=== PATIENT | male | born 1955 | race Caucasian/White ===

== ENCOUNTER → 2022-10-29 13:59 | Outpatient (CLI) | payer MEDICARE, OTHER, SELFPAY ==
--- NOTE | 2022-10-29 14:06 | DI.RAD.S_ITS ---
PROCEDURE: XR KNEE RT 3V INDICATIONS: chronic knee pain TECHNIQUE: 3 views of the knee were acquired. COMPARISON: None. FINDINGS: Bones: No fractures or dislocations. Minor tricompartment degenerative spur formation. No suspicious bony lesions. Soft tissues: No joint effusion. No suspicious soft tissue calcifications. No chondrocalcinosis. IMPRESSION: 1. Minimal tricompartment osteoarthritic changes. Dictated by: Roz Mendoza M.D. on 10/29/2022 at 17:43 Approved by: Roz Mendoza M.D. on 10/29/2022 at 17:44
== END ==
PROVIDERS: PCP Family Medicine; Referring Provider Family Medicine; Visit Provider Family Medicine
DX: M25.561 Pain in right knee (principal)
CPT/HCPCS: 73562

== ENCOUNTER → 2022-12-17 06:51 | Outpatient (CLI) | payer MEDICARE, OTHER, SELFPAY ==
[2022-12-17 08:08] LABS: Alanine Aminotransferase 30 IU/L (<50); Albumin 4.2 g/dL (3.5-5.0); Albumin Globulin Ratio 1.6 (1.0-2.8); Alkaline Phosphatase 82 U/L (38-126); Aspartate Aminotransferase 26 IU/L (17-59); BUN Creatinine Ratio 25.4 (6-22); Bilirubin Total 0.3 mg/dL (0.2-1.3); Blood Urea Nitrogen 17 mg/dL (9-20); Calcium 9.1 mg/dL (8.4-10.2); Carbon Dioxide 27 mmol/L (22-32); Chloride 101 mmol/L (98-107); Cholesterol 118 mg/dL (140-199); Estimated Glomerular Filt Rate > 60 mL/min (>60); Globulin 2.7 g/dL (1.7-4.1); Glucose 156 mg/dL (80-110); HDL Cholesterol 32 mg/dL (40-60); HEMOLYSIS < 15 (0-50); LDL Cholesterol Calculated 65 mg/dL (<100); Potassium 4.1 mmol/L (3.4-5.1); Sodium 137 mmol/L (137-145); Total Protein 6.9 g/dL (6.3-8.2); Triglycerides 107 mg/dL (35-150)
[2022-12-18 02:57] LABS: x Labcorp Estim. Avg Glu (eAG) 151 mg/dL (.); x Labcorp Hemoglobin A1c 6.9 % (4.8-5.6)
== END ==
PROVIDERS: PCP Family Medicine; Referring Provider Family Medicine; Visit Provider Family Medicine
DX: E11.9 Type 2 diabetes mellitus without complications (principal); I10 Essential (primary) hypertension
CPT/HCPCS: 36415; 80053; 80061; 83036

== ENCOUNTER → 2022-12-31 14:46 | Outpatient (CLI) | payer MEDICARE, OTHER, SELFPAY ==
--- NOTE | 2022-12-31 14:48 | DI.RAD.S_ITS ---
PROCEDURE: XR HIP W PEL IF DONE LT 2V INDICATIONS: pain x 2 wks TECHNIQUE: AP pelvis with lateral view(s) of the left hip(s). COMPARISON: None. FINDINGS: Bones: No fractures or dislocations. Pelvic ring appears intact. No suspicious bony lesions. Lower lumbar spine postsurgical changes partially imaged. Severe left hip joint space narrowing. Spurring is also present and probable subchondral cystic change. Soft tissues: The visualized bowel gas pattern is normal. No suspicious soft tissue calcifications. IMPRESSION: No acute fracture or dislocation identified. Pronounced degenerative changes of the left hip present. If symptoms persist, follow-up radiographs and/or CT or MRI may be helpful for further evaluation. Dictated by: Itz Henry M.D. on 12/31/2022 at 18:24 Approved by: Itz Henry M.D. on 12/31/2022 at 18:25
== END ==
PROVIDERS: PCP Family Medicine; Referring Provider Family Medicine; Visit Provider Family Medicine
DX: M25.552 Pain in left hip (principal)
CPT/HCPCS: 73502

== ENCOUNTER → 2023-01-09 09:58 | Outpatient (CLI) | payer MEDICARE, OTHER, SELFPAY ==
--- NOTE | 2023-01-09 | DI.RAD.S_ITS ---
PROCEDURE: XR CERVICAL SPINE 2V OR 3V INDICATIONS: Presence of other specified functional implants TECHNIQUE: 2 view(s) of the cervical spine were acquired. COMPARISON: None. FINDINGS: Bones: No fractures or dislocations to the C7 level. The lateral masses of C1 appear intact on the odontoid view. No suspicious bony lesions. Straightening of normal cervical lordosis with mild reversal centered at C5-C6. Multilevel degenerative changes with facet and uncovertebral arthropathy, disc height loss and osteophytosis. This is severe at C5-C6. Soft tissues: No prevertebral soft tissue swelling. Spinal cord stimulator lead extending to the level of the occiput. IMPRESSION: Multilevel degenerative changes, severe at C5-C6. Spinal cord stimulator leads extend to the level of the occiput. Dictated by: Darren Grant M.D. on 01/09/2023 at 13:39 Approved by: Darren Grant M.D. on 01/09/2023 at 13:40
--- NOTE | 2023-01-09 | DI.RAD.S_ITS ---
PROCEDURE: XR THORACIC SPINE 2V INDICATIONS: Presence of other specified functional implants TECHNIQUE: 2 views of the thoracic spine were acquired. COMPARISON: None. FINDINGS: Bones: No fractures or dislocations. No suspicious bony lesions. 12 pairs of ribs are noted, and appear intact where visualized. Degenerative changes of the thoracic spine with disc height loss and degenerative endplate changes with spurring. Diffusely decreased osseous mineralization. Soft tissues: No paravertebral stripe thickening. Spinal cord stimulator is partially visualized with leads extending into the thoracic spine, 1 lead terminates at T8-T9, the other lead extends into the cervical spine. IMPRESSION: Multilevel degenerative changes of the thoracic spine. Spinal cord stimulator in place with leads as described above. Dictated by: Darren Grant M.D. on 01/09/2023 at 13:37 Approved by: Darren Grant M.D. on 01/09/2023 at 13:39
--- NOTE | 2023-01-09 | DI.RAD.S_ITS ---
PROCEDURE: XR LUMBAR SPINE 2-3V INDICATIONS: Presence of other specified functional implants TECHNIQUE: 2 views of the lumbar spine were acquired. COMPARISON: None. FINDINGS: Bones: 5 [id number] vertebrae are present. Straightening of normal lumbar lordosis. Retrolisthesis of L2 on L3. Posterior spinal fixation hardware from L3 through L5 on the right and L3-L4 on the left. Discectomy hardware at L4-5 L5-S1. Fusion of the vertebral bodies from L3 through S1. Severe disc height loss L2-L3. Degenerative endplate changes with spurring. Facet arthropathy. No vertebral body compression fractures. No suspicious bony lesions. Soft tissues: Overlying bowel gas pattern is normal. No suspicious soft tissue calcifications. Spinal cord stimulator device in place. IMPRESSION: Multilevel degenerative changes of the lumbar spine status post L3 through S1 discectomy infusion, as above. The hardware appears intact. Degenerative changes at L2-L3 with severe disc height loss and grade 1 retrolisthesis. Dictated by: Darren Grant M.D. on 01/09/2023 at 13:35 Approved by: Darren Grant M.D. on 01/09/2023 at 13:37
== END ==
PROVIDERS: PCP Family Medicine; Referring Provider Pain Medicine Pain Medicine; Visit Provider Pain Medicine Pain Medicine
DX: M47.812 Spondylosis without myelopathy or radiculopathy, cervical region (principal); M47.814 Spondylosis without myelopathy or radiculopathy, thoracic region; M47.816 Spondylosis without myelopathy or radiculopathy, lumbar region; Z96.82 Presence of neurostimulator; Z98.1 Arthrodesis status
CPT/HCPCS: 72040; 72070; 72100

== ENCOUNTER 2023-01-22 21:16 | Emergency (ER) | payer MEDICARE, OTHER, SELFPAY ==
[2023-01-22 21:20] VITALS: BP 134/66; PULSE 89; RESP 18; TEMP 37.1; O2SAT 98; BMI 29.9
--- NOTE | 2023-01-22 21:30 | DI.RAD.S_ITS ---
PROCEDURE: XR KNEE LT 3V INDICATIONS: pain x 3 weeks, no trauma TECHNIQUE: 3 views of the knee were acquired. COMPARISON: [facility], CR, XR KNEE RT 3V, 10/29/2022, 14:32. FINDINGS: Bones: No fractures or dislocations. No suspicious bony lesions. Soft tissues: No joint effusion. No suspicious soft tissue calcifications. IMPRESSION: 1. No fracture or dislocation. Dictated by: Adonis Alexander M.D. on 01/22/2023 at 23:07 Approved by: Adonis Alexander M.D. on 01/22/2023 at 23:07
--- NOTE | 2023-01-22 21:30 | DI.RAD.S_ITS ---
PROCEDURE: XR HIP W PEL IF DONE LT 2V INDICATIONS: pain x 3 weeks, no trauma TECHNIQUE: AP pelvis with lateral view of the left hip. COMPARISON: [facility], CR, XR HIP W PEL IF DONE LT 2V, 12/31/2022, 15:10. FINDINGS: Bones: No fractures or dislocations. Pelvic ring appears intact. There is bony prominence of the femoral head-neck junction bilaterally. Moderate to severe superior joint space narrowing demonstrated within the left hip with subchondral sclerosis. No suspicious bony lesions. Soft tissues: The visualized bowel gas pattern is normal. No suspicious soft tissue calcifications. IMPRESSION: 1. No fracture or dislocation. 2. Bony prominence of the femoral head-neck junction bilaterally, left greater than right, may be associated with femoral acetabular impingement in the appropriate clinical context. 3. Moderate to severe superior joint space narrowing in the left hip. Dictated by: Adonis Alexander M.D. on 01/22/2023 at 23:05 Approved by: Adonis Alexander M.D. on 01/22/2023 at 23:06
--- NOTE | 2023-01-23 02:07 | ED_ITS ---
HPI - Extremity Problem General Chief complaint: Extremity Problem,Nontraumatic Stated complaint: lt hip, groin, knee, calf pain Time Seen by Provider: 01/23/23 02:06 Source: patient Mode of arrival: Ambulatory History of Present Illness HPI Narrative: 67-year-old gentleman with a history of severe chronic back pain multiple back surgeries current implantable device with 1 of the leads having migrated out so it is not working with pain control. He takes morphine 30 mg extended release daily for chronic pain control and an occasional 5 mg hydrocodone. He is an appointment with Orthopedic surgery coming up on February 04 to discuss the nerve implant lead that has migrated. He describes an episode about 3 weeks ago where he stumbled slightly over some rocks in his yd he adjusted quickly did not actually fall but ended up sitting down with a twisting turning motion. 2-3 days later he is noticed increasing pain in his buttocks hip including groin area radiating down to the distal thigh and knee. Briefly discuss this with his primary care physician with a well exam at the end of December. Upcoming orthopedic appointments as discussed. He notes that over the last couple of days the pain is simply become severe enough that he can comfortable. He thinks that it likely is his hip as the source of his pain but he describes the over all episode as similar to the pain that eventually led to his lumbar fusion in that he is unable to find a comfortable space and losing sleep because of pain. He is also complaining that the left leg is somewhat weaker particularly with internal rotation and adduction and it is difficult to tell if this is independent of the pain. He describes no fevers or chills no warmth or redness to the joints. No tenderness or abnormalities around the spine implant. Additional finding is since his twisting turning, ?sit down on the rock? event about 3 weeks ago he is noticed that he has been having increase nocturia. Typically had been 1-2 times a night and now he is finding that he is getting up almost every other hour. He does feel like he is completely emptying. Related Data Home Medications Medication Instructions Recorded Confirmed hydrocodone 5 mg-acetaminophen 325 1 tab PO Q8H PRN 10/29/22 12/31/22 mg tablet morphine 30 mg tablet,extended 30 mg PO Q12H 10/29/22 12/31/22 release celecoxib 200 mg capsule 200 mg PO DAILY 12/31/22 12/31/22 Previous Rx's Medication Instructions Recorded lisinopril 20 mg tablet 20 mg PO DAILY #90 tabs 10/29/22 atorvastatin 20 mg tablet (Lipitor) 20 mg PO BEDTIME cholesterol #90 12/31/22 tabs pioglitazone 15 mg tablet 15 mg PO DAILY #90 tabs 12/31/22 Allergies Allergy/AdvReac Type Severity Reaction Status Date / Time No Known Drug Allergies Allergy Unverified 12/31/22 13:52 Review of Systems Review of Systems Narrative: Pertinent positive and negative findings as per HPI Patient History Medical History (Updated 01/23/23 @ 03:05 by Cecelia Layne MD) Benign essential HTN Carpal tunnel syndrome Chicken pox Chronic back pain Encounter for initial annual wellness visit (AWV) in Medicare patient Irritable bowel syndrome (~2001) Mumps Skin cancer Type 2 diabetes mellitus without complication, with no history of insulin use Surgical History (Updated 10/26/22 @ 21:21 by Geetha Parada) Anesthesia History of surgery Family History (Updated 10/26/22 @ 21:22 by Geetha Parada) Father Cancer Mother Cancer Social History Smoking Status: Never smoker Smoking Status: Never smoker alcohol intake frequency: holidays/special occasions only Substance Use Type: does not use Exam Initial Vital Signs Initial Vital Signs: Vital Signs Temperature 98.8 F 01/22/23 21:20 Pulse Rate 89 01/22/23 21:20 Respiratory Rate 18 01/22/23 21:20 Blood Pressure 134/66 01/22/23 21:20 Pulse Oximetry 98 01/22/23 21:20 Oxygen Delivery Method Room Air 01/22/23 21:20 General: Alert appropriate in no acute distress Respiratory: Able to speak in full sentences, no obvious respiratory distress Skin: No obvious rashes, warm and dry Spine: He has some well-healed scars over the lumbar spine from midline surgeries and implantable pain stimulating devices. None of these are erythematous or fluctuant to suggest infection. He has no point tenderness along the center portion of his spine. Does have pain radiating into the middle of his buttocks consistent with a sciatic type pain. He also has pain worse with external rotation of the hip in the groin itself. Distally he is neurovascularly intact Psych: appropriate insight and affect, cooperative Course Orders Ordered: ED Orders 01/22/23 21:30 XR hip w pel if done LT 2V Stat XR knee LT 3V Stat Vital Signs Vital signs: Vital Signs - 8 hr 01/22/23 21:20 Temperature 98.8 F Pulse Rate 89 Respiratory Rate 18 Blood Pressure 134/66 Pulse Oximetry 98 Oxygen Delivery Method Room Air MDM - Extremity (Nontraumatic) MDM Narrative Medical decision making narrative: CC: Acute groin buttock and low back pain in the setting of chronic issues for which he is already seeing orthopedic surgery Complicating co-morbidities: He has been on Lyrica in the past he has been on multiple nonsteroidals he is currently on celecoxib, he has extended release morphine and tries to be very judicious with this and would prefer to be off narcotics completely and is not interested in adding narcotics. He is had steroid injections in the past and oral steroids which have not been beneficial. Data collected from: patient, Medical records reviewed: Primary care notes are reviewed Differential considered: Irritation of his lumbar spine proximal to his fusion with sciatic symptoms, worsening left hip arthritis, Exam documented above, pertinent findings include: He is able to walk. There is no point tenderness along his spine I do not suspect epidural abscess or infection. Imaging studies independently reviewed: X-rays of the lumbar spine that were done on January 09 are reviewed multilevel disease X-ray of the hip done today shows moderate to severe superior joint space narrowing in the left hip Knee x-ray is benign Treatments: IM Toradol Discussion: Long discussion regarding options. At this point his appointment with the orthopedic surgeon on February 05 certainly going to be beneficial. He is hoping to have the nerve stimulator leads repositioned does that had been effective initially. He is not interested in increasing narcotics, he is on nonsteroidal he isn't interested in trying steroids. We reviewed in detail his x-rays, likely chronic etiology of his symptoms and reassurance is given. At this point no acute fractures, epidural abscess, cauda equina syndrome. He clearly has exacerbated his chronic issues with the twisting falling episode 3 weeks ago. Going to try ice and heat as he has not added that back. We talked about some additional not specifically evidence based medicine [employer] topical patches that he may be interested in purchasing [id number]. He is given a Toradol shot to see if we can at least help with some sleep tonight and he has all appropriate follow-up. 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 As we discussed reviewing the x-rays and your known injuries, I do not have any magical fixes for you this evening. I do suspect that you exacerbated both the back pain with the sciatica into your buttock as well as the hip arthritis and joint pain with your twisting turning not quite fall about 3 weeks ago. You are already on the perfect combination of outpatient medications with the celecoxib and the scheduled morphine and as needed hydrocodone. You have a ppropriate follow-up coming up with the orthopedic surgeon. I am not seeing anything that looks immediatel life-threatening, anything that looks like an infection in your spine or spinal cord and nothing that would indicate that we need additional workup or hospitalization emergently. You are given a shot of Toradol in the emergency department, I hope this gives you a couple of hours of relief and hopefully the ability to get a few hours of sleep this morning. Please do follow-up with the orthopedic surgeon. I wish you the best Prescriptions: No Action lisinopril 20 mg tablet 20 mg PO DAILY Qty: 90 3RF morphine 30 mg tablet extended release 30 mg PO Q12H hydrocodone-acetaminophen 5-325 mg tablet 1 tab PO Q8H PRN celecoxib 200 mg capsule 200 mg PO DAILY pioglitazone 15 mg tablet 15 mg PO DAILY Qty: 90 3RF atorvastatin [Lipitor] 20 mg tablet 20 mg PO BEDTIME Qty: 90 3RF Referrals: Daniel Slaughter DO [Primary Care Provider] - Stand Alone Forms: Patient Portal/API
[2023-01-23] MEDS: KETOROLAC 30 MG/ML VIAL IM (02:54)
[2023-01-23 03:06] VITALS: BP 133/86; PULSE 73; RESP 18; TEMP 36.7
== END 2023-01-23 03:13 | disposition home or self-care (01) ==
PROVIDERS: Emergency Provider Emergency Medicine; PCP Family Medicine
DX: M54.42 Lumbago with sciatica, left side (principal); M16.12 Unilateral primary osteoarthritis, left hip
CPT/HCPCS: 73502; 73562; 96372; 99283; J1885

== ENCOUNTER → 2023-04-11 07:37 | Outpatient (CLI) | payer MEDICARE, OTHER, SELFPAY ==
[2023-04-11 08:42] LABS: Hemoglobin A1C% w Est Avg Glu 7.4 % (4.0-6.0)
== END ==
PROVIDERS: PCP Family Medicine; Referring Provider Family Medicine; Visit Provider Family Medicine
DX: E11.9 Type 2 diabetes mellitus without complications (principal)
CPT/HCPCS: 36415; 83036

== ENCOUNTER → 2023-05-27 06:57 | Outpatient (CLI) | payer MEDICARE, OTHER, SELFPAY ==
[2023-05-27 08:35] LABS: BUN Creatinine Ratio 27.7 (6-22); Blood Urea Nitrogen 18 mg/dL (9-20); Calcium 9.8 mg/dL (8.4-10.2); Carbon Dioxide 27 mmol/L (22-32); Chloride 100 mmol/L (98-107); Estimated Glomerular Filt Rate > 60 mL/min (>60); Glucose 202 mg/dL (80-110); HEMOLYSIS < 15 (0-50); Potassium 3.9 mmol/L (3.4-5.1); Sodium 136 mmol/L (137-145)
[2023-05-27 08:47] LABS: Hemoglobin A1C% w Est Avg Glu 7.4 % (4.0-6.0)
== END ==
PROVIDERS: PCP Family Medicine; Referring Provider Family Medicine; Visit Provider Family Medicine
DX: E11.9 Type 2 diabetes mellitus without complications (principal); I10 Essential (primary) hypertension; M54.9 Dorsalgia, unspecified; G89.29 Other chronic pain; M25.559 Pain in unspecified hip
CPT/HCPCS: 36415; 80048; 83036

== ENCOUNTER → 2023-06-03 13:33 | Outpatient (CLI) | payer MEDICARE, OTHER, SELFPAY ==
[2023-06-03 15:16] LABS: Creatinine Urine Random 91.6 mg/dL
[2023-06-03 15:21] LABS: Microalbumin Urine Random < 0.6 mg/dL (0-1.6)
== END ==
PROVIDERS: PCP Family Medicine; Referring Provider Family Medicine; Visit Provider Family Medicine
DX: E11.9 Type 2 diabetes mellitus without complications (principal); I10 Essential (primary) hypertension
CPT/HCPCS: 82043; 82570

== ENCOUNTER → 2023-08-24 08:35 | Outpatient (CLI) | payer MEDICARE, OTHER, SELFPAY ==
[2023-08-24 10:00] LABS: Hemoglobin A1C% w Est Avg Glu 7.3 % (4.0-6.0)
== END ==
LOC: LAB 08:36
PROVIDERS: PCP Family Medicine; Referring Provider Family Medicine; Visit Provider Family Medicine
DX: E11.9 Type 2 diabetes mellitus without complications (principal)
CPT/HCPCS: 36415; 83036

== ENCOUNTER → 2023-12-04 09:59 | Outpatient (CLI) | payer MEDICARE, OTHER, SELFPAY ==
[2023-12-04 10:30] LABS: Hematocrit 36.2 % (41-53); Hemoglobin 12.1 g/dL (13.5-17.5); Mean Corpuscular HGB Conc 33.6 % (30-36); Mean Corpuscular Hemoglobin 30.2 PG (26-34); Mean Corpuscular Volume 89.8 fL (80-100); Platelet Count 395 X10^3/uL (150-400); Red Blood Cell Count 4.03 X10^6/uL (4.5-5.9); Red Cell Distribution Width 15.1 % (11.6-14.8); White Blood Cell Count 12.1 X10^3/uL (4.5-11.0)
[2023-12-04 10:33] LABS: Hemoglobin A1C% w Est Avg Glu 7.2 % (4.0-6.0)
[2023-12-04 10:56] LABS: Cholesterol 69 mg/dL (140-199); HDL Cholesterol 25 mg/dL (40-60); LDL Cholesterol Calculated 23 mg/dL (<100); Triglycerides 107 mg/dL (35-150)
[2023-12-04 11:29] LABS: Ferritin 237 ng/mL (18-464)
[2023-12-04 11:45] LABS: Vitamin B12 > 1000 pg/mL (239-931)
== END ==
PROVIDERS: PCP Family Medicine; Referring Provider Family Medicine; Visit Provider Family Medicine
DX: E11.9 Type 2 diabetes mellitus without complications (principal); Z12.5 Encounter for screening for malignant neoplasm of prostate; G99.0 Autonomic neuropathy in diseases classified elsewhere; E78.5 Hyperlipidemia, unspecified
CPT/HCPCS: 36415; 80061; 82607; 82728; 83036; 85027; G0103

== ENCOUNTER → 2024-11-26 06:52 | Outpatient (CLI) | payer MEDICARE, OTHER, SELFPAY ==
[2024-11-26 08:17] LABS: Hemoglobin A1C% w Est Avg Glu 6.1 % (4.0-6.0)
[2024-11-26 08:19] LABS: Alanine Aminotransferase 27 IU/L (<50); Albumin 4.4 g/dL (3.5-5.0); Albumin Globulin Ratio 1.8 (1.0-2.8); Alkaline Phosphatase 68 U/L (38-126); Blood Urea Nitrogen 25 mg/dL (9-20); Calcium 9.2 mg/dL (8.4-10.2); Carbon Dioxide 26 mmol/L (22-32); Chloride 104 mmol/L (98-107); Cholesterol 83 mg/dL (140-199); Estimated Glomerular Filt Rate > 60 mL/min (>60); Globulin 2.5 g/dL (1.7-4.1); Glucose 128 mg/dL (70-99); HDL Cholesterol 31 mg/dL (40-60); HEMOLYSIS < 15 (0-50); Potassium 4.6 mmol/L (3.4-5.1); Sodium 137 mmol/L (137-145); Total Protein 6.9 g/dL (6.3-8.2); Triglycerides 96 mg/dL (35-150)
[2024-11-26 09:34] LABS: Ur Specific Gravity Normal (Normal)
[2024-11-26 09:35] LABS: UR Morphine/Opiate cutoff 300 Negative (Negative); Urine MDMA Negative (Negative); Urine Methamphetamines Negative (Negative); Urine Tetrahydrocannabinol Negative (Negative); Urine Tricyclic Antidepressant Negative (Negative)
[2024-11-26 15:29] LABS: Hep C Virus Ab w/Reflex Quant NEGATIVE s/c (NEGATIVE)
== END ==
PROVIDERS: PCP Family Medicine; Referring Provider Family Medicine; Visit Provider Family Medicine
DX: Z00.00 Encounter for general adult medical examination without abnormal findings (principal); E11.42 Type 2 diabetes mellitus with diabetic polyneuropathy; E78.5 Hyperlipidemia, unspecified; Z02.89 Encounter for other administrative examinations; I10 Essential (primary) hypertension
CPT/HCPCS: 36415; 80053; 80061; 80305; 83036; 86803